=== PATIENT | female | born 1970 | race Caucasian/White ===

== ENCOUNTER 2021-08-30 07:30 | Day surgery (SDC) | payer OTHER ==
[~2021-08-30] VITALS: Ht 170.2 cm; Wt 70.0 kg
[2021-08-30] MEDS ORDERED: FLUOXETINE HCL10 MG PO (07:52)
[2021-08-30] MEDS ORDERED: ESTRADIOL1 MG (07:52)
--- NOTE | 2021-08-30 08:53 | NUR ---
08/30/21 0853 Argelia Mosley 0845 PT TO PACU SLEEPY BUT DROWSEY. DENIES PAIN OR NAUSEA.
--- NOTE | 2021-08-30 15:25 | OR ---
[facility] [address], [place] [address] Signed DATE OF OPERATION: 08/30/2021 SURGEON: Moises Palm MD PREOPERATIVE DIAGNOSIS: History of constipation. No evidence of bleeding or diarrhea. POSTOPERATIVE DIAGNOSIS: Normal-appearing colon to cecum. PROCEDURE: Total colonoscopy. ANESTHESIA: Intravenous sedation, fentanyl 150 mcg and Versed 7 mg. INDICATION: This 51-year-old white woman is a patient of [facility]. She has a history of constipation. She underwent colonoscopy in [place], [place] in 2014, which was said to be normal, though the ileum showed some nodular changes which upon review in my opinion were typical of terminal ileum lymphoid aggregates. She has no blood per rectum, but has had episodes of constipation. She has no family history of colon cancer that she is aware of. She is admitted at this time to undergo colonoscopy. She understands the risks of bleeding, infection, and perforation. FINDINGS: The prep was excellent. Complete colonoscopy was undertaken to the cecum without question. She had no evidence of polyps, diverticular formation, colitis, or cancer. Retroflex view of the rectum was normal as well. DESCRIPTION OF PROCEDURE: The patient was brought to the endoscopy suite and placed in lateral decubitus position, given intravenous sedation to the point of slurred speech and nystagmus. Digital rectal examination was normal. An Olympus video colonoscope was passed in the rectum and manipulated throughout the colon. Passage to the sigmoid and left colon was uncomfortable and therefore additional medication was given as needed. The scope was advanced ultimately to the cecum. Evaluation showed there to be no sign of abnormality. Scope was withdrawn from that point and examination throughout showed no sign of polyps, diverticular formation, Electronically Signed By: MOISES PALM MD 08/30/21 1525 PATIENT NAME: RENNY RUIZ OPERATIVE REPORT DATE OF : 72 REPORT #: [id number] PHYSICIAN: MOISES PALM MD PCP: SUNNY PHILIPPE PA-C REPORT IS CONFIDENTIAL AND NOT TO BE RELEASED WITHOUT AUTHORIZATION [facility] [address], [place] [address] Signed colitis, or cancer. Retroflex view was normal as well. The scope was removed and the patient was taken to the recovery room in good condition. CONCLUDING DIAGNOSIS: Normal-appearing colon. PLAN: Recommend high-fiber diet or fiber supplement (Citrucel or Metamucil) to address the constipation problem. If persistent symptoms are noted, I am happy to see her back upon the judgment of [facility] and we will initiate other interventions. MD LOKESH Ny/KRISTEN /[id number] cc: [facility] Copies: ~ Electronically Signed By: MOISES PALM MD 08/30/21 1525 PATIENT NAME: RENNY RUIZ OPERATIVE REPORT DATE OF : 72 REPORT #: [id number] PHYSICIAN: MOISES PALM MD PCP: SUNNY PHILIPPE PA-C REPORT IS CONFIDENTIAL AND NOT TO BE RELEASED WITHOUT AUTHORIZATION
== END 2021-08-30 10:00 | disposition home or self-care (01) ==
LOC: OPS 07:30 → DS 07:30 → OPS 08:30 → DS 08:30 → OPS 10:00
PROVIDERS: ATTEND Surgery
PROC: 0DJD8ZZ Inspection of Lower Intestinal Tract, Via Natural or Artificial Opening Endoscopic (ICD-10-PCS; principal; 2021-08-30 08:30)
DX: Z12.11 Encounter for screening for malignant neoplasm of colon (principal); F41.9 Anxiety disorder, unspecified; Z90.711 Acquired absence of uterus with remaining cervical stump; Z78.0 Asymptomatic menopausal state
CPT/HCPCS: J2250; J3010; J7121

== ENCOUNTER 2024-06-09 12:45 | Emergency (ER) | payer OTHER ==
[~2024-06-09] VITALS: Ht 170.2 cm; Wt 74.0 kg
[~2024-06-09 12:45] MED LIST: CYCLOBENZAPRINE10 MG PO; ESTRADIOL1 MG; FLUOXETINE HCL10 MG PO; LIDOCAINE HCL100 ML MT
[2024-06-09 13:38] LABS: INFLUENZA B NAA NEGATIVE (NEGATIVE); RESPIRATORY SYNCYTIAL VIR NAA NEGATIVE (NEGATIVE)
[2024-06-09] MEDS ORDERED: VENTOLIN HFA18 GM INH (17:01)
[2024-06-09 17:16] VITALS: BP 113/74
== END 2024-06-09 17:15 | disposition home or self-care (01) ==
LOC: ED 12:45
PROVIDERS: Emergency Medicine
DX: J06.9 Acute upper respiratory infection, unspecified (principal); Z79.899 Other long term (current) drug therapy
CPT/HCPCS: 87502; 99283; U0002